=== PATIENT | female | born 1985 | race African-American/Black ===

== ENCOUNTER 2020-12-14 23:03 | Inpatient (IN) ==
[2020-12-14] MEDS ORDERED: ONDANSETRON 4 MG/2 ML VIAL IV PRN (23:23)
[2020-12-14] MEDS ORDERED: MEPERIDINE 50 MG/1 ML VIAL IV PRN (23:23)
[2020-12-14] MEDS ORDERED: BUTORPHANOL 2 MG/ML VIAL IV PRN (23:23)
[2020-12-14] MEDS ORDERED: NALOXONE 0.4 MG/ML VIAL IV PRN (23:29)
[2020-12-14] MEDS ORDERED: ePHEDrine 50 MG/ML VIAL IV PRN (23:29)
[2020-12-14] MEDS ORDERED: diphenhydrAMINE 50 MG/1 ML VIAL IV PRN ×2 (23:29)
[2020-12-14] MEDS ORDERED: hydrOXYzine HCL 25 MG/1 ML VIAL IM PRN (23:29)
[2020-12-14] MEDS ORDERED: fentaNYL 2 MCG/ROPIV 0.2% EPID 100 ML EPIDURAL SCH (23:30)
[2020-12-14] MEDS ORDERED: CITRIC ACID/SODIUM CITRATE 30 ML UDCUP PO ONE (23:30)
[2020-12-14] MEDS ORDERED: FAMOTIDINE 20 MG/2 ML VIAL IV ONE (23:31)
[2020-12-14] MEDS: LACTATED RINGERS 1,000 ML IV SCH (23:33)
[2020-12-14] MEDS ORDERED: AMPICILLIN INJ 2,000 MG in SODIUM CHLORIDE 0.9% 100 ML IV ONE (23:36)
[2020-12-14 23:48] LABS: Basophils % 0.2 % (0.0-0.8); Eosinophils % 0.1 % (0.00-10.9); Immature Granulocytes % 0.3 %; Immature Granulocytes Absolute 0.03 #; Lymphocytes # 1.4 10*3/uL (1.4-4.0); Lymphocytes % 13.2 % (21.3-54.2); Mean Corpuscular HGB Conc 33.3 GM/DL (32-36); Mean Corpuscular Volume 86.3 FL (87-102); Mean Platelet Volume 9.3 FL (9.6-12.0); Monocytes % 7.5 % (1.7-12.7); Neutrophils % 78.7 % (38.7-73.9); Platelet Count 201 T/CUMM (130-400); Red Blood Count 4.17 MC/CUMM (3.8-5.5); Red Cell Distribution Width 13.8 % (9.3-17.3); White Blood Count 10.2 T/CUMM (4-12)
[2020-12-15 00:05] LABS: Albumin 2.8 G/DL (3.4-5.0); Bilirubin,Total 0.4 MG/DL (0.2-1.0); Calcium 8.5 MG/DL (8.5-10.1); Osmolality,Calculated 272.5 MOS/KG (273-304); Potassium 3.6 MMOL/L (3.5-5.1); Total Protein 7.4 G/DL (6.4-8.2)
[2020-12-15] MEDS: LACTATED RINGERS 1,000 ML IV SCH (00:24)
[2020-12-15] MEDS ORDERED: OXYTOCIN/LR 20 UNIT/1,000 ML BAG IV ONE ×3 (00:33→02:03)
[2020-12-15] MEDS ORDERED: miSOPROStoL 200 MCG TABLET ONE (01:06)
[2020-12-15] MEDS ORDERED: TRANEXAMIC ACID 1,000 MG/10 ML VIAL ONE (01:06)
[2020-12-15] MEDS ORDERED: METHYLERGONOVINE 0.2 MG/1 ML AMP ONE (01:06)
[2020-12-15] MEDS ORDERED: CARBOPROST TROMETHAMINE 250 MCG/ML AMP IM ONE (01:07)
[2020-12-15] MEDS ORDERED: oxyCODONE/ACETAMINOPHEN 5-325 MG TABLET PO PRN ×2 (02:03)
[2020-12-15] MEDS ORDERED: WITCH HAZEL PADS 100/JAR TOP PRN (02:03)
[2020-12-15] MEDS ORDERED: BENZOCAINE 20%/MENTHOL 0.5% SPRAY 56 GM CAN TOP PRN (02:03)
[2020-12-15] MEDS ORDERED: ONDANSETRON 4 MG/2 ML VIAL IV PRN (02:03)
[2020-12-15] MEDS ORDERED: HYDROCORTISONE 2.5% RECTAL CREAM 30 GM TUBE TOP PRN (02:03)
[2020-12-15] MEDS ORDERED: MEASLES/MUMPS/RUBELLA VACCINE 0.5 ML VIAL SUBCUT ONE (02:03)
[2020-12-15] MEDS ORDERED: LANOLIN 50% CREAM 0.3 OZ TUBE TOP PRN (02:03)
[2020-12-15] MEDS ORDERED: BISACODYL 10 MG SUPP RECTAL PRN (02:03)
[2020-12-15] MEDS ORDERED: ACETAMINOPHEN 325 MG TABLET PO PRN (02:03)
[2020-12-15] MEDS ORDERED: RHO(D) IMMUNE GLOBULIN 300 MCG SYRINGE IM ONE (02:03)
[2020-12-15] MEDS ORDERED: DIPH/TET/ACEL PERT BOOSTER VACCINE 0.5 ML VIAL IM ONE (02:03)
[2020-12-15 02:11] LABS: Cord Venous Blood HCO3 19.3 MMOL/L; Cord Venous Blood PCO2 51.3 MMHG; Cord Venous Blood PO2 18.1
[2020-12-15 02:47] LABS: Rubella Antibody IgG Result Non-Reactive (NonReactive)
[2020-12-15 03:41] LABS: Basophils % 0.2 % (0.0-0.8); Hematocrit 36.2 VOL% (35.7-47.0); Immature Granulocytes % 0.5 %; Immature Granulocytes Absolute 0.05 #; Lymphocytes # 0.5 10*3/uL (1.4-4.0); Lymphocytes % 5.1 % (21.3-54.2); Mean Corpuscular HGB Conc 33.1 GM/DL (32-36); Mean Corpuscular Volume 85.6 FL (87-102); Mean Platelet Volume 9.5 FL (9.6-12.0); Monocytes % 6.7 % (1.7-12.7); Neutrophils % 87.5 % (38.7-73.9); Platelet Count 196 T/CUMM (130-400); Red Blood Count 4.23 MC/CUMM (3.8-5.5); Red Cell Distribution Width 13.8 % (9.3-17.3); White Blood Count 10.2 T/CUMM (4-12)
[2020-12-15] MEDS: IBUPROFEN 800 MG TABLET PO PRN ×2 (04:23→21:20)
[2020-12-15] MEDS: DOCUSATE SODIUM 100 MG CAPSULE PO SCH ×2 (11:27→21:21)
[2020-12-16] MEDS: DOCUSATE SODIUM 100 MG CAPSULE PO SCH ×2 (08:09→21:43)
[2020-12-16] MEDS: IBUPROFEN 800 MG TABLET PO PRN (21:47)
[2020-12-17] MEDS: DOCUSATE SODIUM 100 MG CAPSULE PO SCH ×2 (07:52→08:40)
[2020-12-17 08:17] VITALS: BP 96/72
== END 2020-12-17 11:33 | disposition home or self-care (01) | DRG 560 ==
LOC: N.LDOUT 23:03 → N.LD 23:06 → N.OB 12-15 15:12
PROVIDERS: ADMIT Specialist; ATTEND Obstetrics & Gynecology